=== PATIENT | female | born 1940 | race Caucasian/White ===

== ENCOUNTER 2024-10-10 14:56 | Inpatient (IN) | payer MEDICARE, BC ==
--- NOTE | 2024-10-10 17:03 | ED ---
General Adult HPI - General Chief complaint: Shortness of Breath Stated complaint: SOB Time Seen by Provider: 10/10/24 15:00 Source: patient, EMS Mode of arrival: EMS Limitations: no limitations - History of Present Illness Initial comments: Patient is an 84-year-old female with a past medical history of atrial fibrillation on Eliquis presenting today as a transfer from [facility] after she presented there for shortness of breath, was found to be hypoxic and diagnosed with bronchitis, additionally patient had elevated troponin and BNP. Cardiology was not available at [facility] so she was transferred here due to elevated troponin. Of note patient was not started on heparin, as she taken her Eliquis this morning. The patient herself does not denies any history of prior CAD/heart attacks, and currently denies chest pain. Patient states that she presented to [facility] today for shortness of breath since last night and feeling like her voice and cough o reverberated in her chest this morning, feeling like she is having chest congestion. Patient states about a week ago she began having upper respiratory symptoms and was started on amoxicillin for a sinus infection. Patient is a non-smoker and has no history of COPD or pulmonary disease. She does not wear oxygen at baseline. Patient states that while at transferring facility she received nebulizer treatments and was placed on supplemental oxygen which improved her symptoms greatly. She denies any new complaints since transfer. - Related Data Home Medications Medication Instructions Recorded Confirmed Apixaban [Eliquis] 5 mg PO BID 10/10/24 10/10/24 DULoxetine HCL [Cymbalta] 30 mg PO BID 10/10/24 10/10/24 Digoxin [Lanoxin] 62.5 mcg PO DAILY 10/10/24 10/10/24 Empagliflozin [Jardiance] 10 mg PO DAILY 10/10/24 10/10/24 Fenofibrate Nanocrystallized 145 mg PO HS 10/10/24 10/10/24 [Fenofibrate] Metoprolol Tartrate [Lopressor] 75 mg PO BID 10/10/24 10/10/24 Omeprazole [PriLOSEC] 40 mg PO DAILY 10/10/24 10/10/24 Sacubitril/Valsartan [Entresto 24 1 tab PO BID 10/10/24 10/10/24 mg-26 mg Tablet] Simvastatin [Zocor] 20 mg PO HS 10/10/24 10/10/24 Spironolactone [Aldactone] 12.5 mg PO HS 10/10/24 10/10/24 Torsemide [Demadex] 10 mg PO DAILY PRN 10/10/24 10/10/24 Allergies Allergy/AdvReac Type Severity Reaction Status Date / Time clindamycin Allergy Unknown Verified 10/10/24 16:16 oxytetracycline Allergy Swelling Verified 10/10/24 16:16 [From Terramycin] sulfamethoxazole Allergy Unknown Verified 10/10/24 16:16 [From Bactrim] trimethoprim [From Bactrim] Allergy Unknown Verified 10/10/24 16:16 Review of Systems ROS Statement: Those systems with pertinent positive or pertinent negative responses have been documented in the HPI. ROS Other: All systems not noted in ROS Statement are negative. Past Medical History Past Medical History: Atrial Fibrillation, Hypertension Additional Past Medical History / Comment(s): Enlarged heart with loop recorder, History of Any Multi-Drug Resistant Organisms: None Reported Past Surgical History: Cholecystectomy, Hernia Repair Additional Past Surgical History / Comment(s): Splinectomy, Past Psychological History: No Psychological Hx Reported Smoking Status: Former smoker Past Alcohol Use History: None Reported Past Drug Use History: None Reported General Exam - General Exam Comments Initial Comments: PE: CONSTITUTIONAL: No apparent distress, ill-appearing but nontoxic, awake and alert SKIN: Warm, dry, no jaundice, hives or petechiae EYES: Pupils are equally round, extraocular movements intact without nystagmus, clear conjunctiva, non-icteric sclera HENT: Normocephalic, atraumatic, moist mucus membranes, oropharynx clear without exudates NECK: , Full range of motion, normal appearance PULMONARY: [Wheezes and rhonchi bilaterally, no stridor or crackles, no accessory muscle use, mild tachypnea, otherwise respirations unlabored CardioVASCULAR: Irregularly irregular rate and rhythm normal S1 and S2. No appreciated murmurs, rubs or gallops. Strong radial pulses with intact distal perfusion. No lower extremity edema GASTROINTESTINAL: Soft, active bowel sounds throughout, non-tender, non-dist ended, no palpable masses, no rebound or guarding. No hepatosplenomegaly MUSCULOSKELETAL: Extremities have no gross deformity, no edema, redness, or swelling. No calf swelling NEUROLOGIC:_a/o x 3, GCS 15, normal mentation and speech. Moves all extremities x 4 without motor or sensory deficit PSYCHIATRIC:_normal mood and affect, thought process is clear and linear Limitations: no limitations Course Vital Signs 10/10/24 10/10/24 10/10/24 15:03 18:02 18:12 Temperature 98.3 F Pulse Rate 96 98 104 H Respiratory 20 Rate Blood Pressure 99/81 O2 Sat by Pulse 97 Oximetry 10/10/24 10/10/24 10/10/24 18:55 19:32 19:38 Temperature Pulse Rate 104 H 101 H 114 H Respiratory 20 20 20 Rate Blood Pressure 132/72 O2 Sat by Pulse 98 Oximetry 10/10/24 10/11/24 10/11/24 20:54 00:02 00:21 Temperature 98.7 F Pulse Rate 112 H 75 87 Respiratory 22 20 20 Rate Blood Pressure 132/82 138/86 O2 Sat by Pulse 96 98 Oximetry 10/11/24 10/11/24 10/11/24 00:27 01:22 02:00 Temperature Pulse Rate 91 112 H 86 Respiratory 20 23 21 Rate Blood Pressure 138/86 O2 Sat by Pulse 96 Oximetry 10/11/24 10/11/24 10/11/24 04:00 07:52 08:02 Temperature Pulse Rate 86 100 98 Respiratory 22 Rate Blood Pressure 152/98 O2 Sat by Pulse 97 Oximetry 10/11/24 10/11/24 10/11/24 08:36 09:50 11:08 Temperature 97.9 F Pulse Rate 99 80 74 Respiratory 18 18 18 Rate Blood Pressure 154/101 149/96 159/108 O2 Sat by Pulse 96 97 97 Oximetry 10/11/24 10/11/24 10/11/24 11:13 11:23 13:18 Temperature Pulse Rate 81 85 82 Respiratory 20 Rate Blood Pressure 150/85 O2 Sat by Pulse 96 Oximetry EKG Findings - EKG Comments: EKG Findings:: Atrial fibrillation, rate 86 bpm QRS duration 92 ms QT/QTc 378/421 ms, normal axis, no ST elevations or depressions Medical Decision Making - Medical Decision Making Was pt. sent in by a medical professional or institution (, PA, [employer], urgent care, hospital, or intermediate...) When possible be specific @ -No Did you speak to anyone other than the patient for history (EMS, parent, family, police, friend...)? What history was obtained from this source @ -No Did you review nursing and triage notes (agree or disagree)? Why? @ -I reviewed nursing and triage notes Were old charts reviewed (outside hosp., previous admission, EMS record, old EKG, old radiological studies, urgent care reports/EKG's, intermediate records)? Report findings @ -Medical records reviewed Reviewed paperwork from patient's transferring facility-patient presented to [facility] for shortness of breath that began night prior to arrival, throat and chest congestion as well and nonproductive cough, initial lactic 5.2, repeat lactic 2 troponin 270, BNP 6405, upper limit of normal at transferring facility 125, chest x-ray was performed which was read as cardiomegaly and mild central vascular prominence white blood cell count 8.83, hemoglobin 15.2, 67% neutrophils creatinine 1.09 GFR 50.59 AST 53 flu A positive; pulse ox initially 88% on room air, patient was given nebulizer treatments and placed on 2 L nasal cannula with pulse ox improving into the 90s, patient also received Tamiflu. At that the time patient was seen patient was not thought to have signs of bacterial infection so antibiotics were not given, she was transferred here due to elevated troponin and no cardiology at transferring facility. An echocardiogram report from 06/10/2024 was also provided with the patient, showed EF of 50% Differential Diagnosis (chest pain, altered mental status, abdominal pain women, abdominal pain men, vaginal bleeding, weakness, fever, dyspnea, syncope, headache, dizziness, GI bleed, back pain, seizure, CVA, palpatations, mental health, musculoskeletal)? @Differential Dyspnea: Coronary syndrome, arrhythmia, tamponade, asthma, COPD, pulmonary embolism, pneumonia, pneumothorax, pulmonary effusion, anaphylaxis, diabetic ketoacidosis, anemia, neuromuscular, this is not meant to be an all-inclusive list. Patient is anticoagulated on Eliquis and has obvious wheezing and rhonchi consistent w ith bronchitis so further workup for PE was not performed EKG interpreted by me (3pts min.). @ -As above X-rays interpreted by me (1pt min.). @ -None done CT interpreted by me (1pt min.). @ -None done U/S interpreted by me (1pt. min.). @ -None done What testing was considered but not performed or refused? (CT, X-rays, U/S, labs)? Why? @ -None What meds were considered but not given or refused? Why? @ Heparin was considered please see note below for further details Did you discuss the management of the patient with other professionals (professionals i.e. , REJI, [employer], lab, RT, psych nurse, social service liaison, ip network architect, teacher, deck officer, case management coordinator)? Give summary @ -No Was smoking cessation discussed for >3mins.? @ -No Was critical care preformed (if so, how long)? @ -No Were there social determinants of health that impacted care today? How? (Homelessness, low income, unemployed, alcoholism, drug addiction, transportation, low edu. Level, literacy, decrease access to med. care, half-way, r ehab)? @ -No Was there de-escalation of care discussed even if they declined (Discuss DNR or withdrawal of care, Hospice)? @ -No What co-morbidities impacted this encounter? (DM, HTN, Smoking, COPD, CAD, Cancer, CVA, ARF, Chemo, Hep., AIDS, mental health diagnosis, sleep apnea, morbid obesity)? @ -Atrial fibrillation on Eliquis Was patient admitted / discharged? Hospital course, mention meds given and route, prescriptions, significant lab abnormalities, going to OR and other pertinent info. @ Admission- patient is an 84-year-old female presenting as a transfer from [facility] where she had initially presented for difficulty breathing and cough. Diagnosed with influenza A, was found to be hypoxic requiring 2 L oxygen nasal cannula, had elevation in troponin, no chest pain or STEMI on EKG, was transferred here for admission, cardiology consult due to elevated troponin. On arrival here patient is on 2 L oxygen nasal cannula, breathing comfortably though does have wheezes and rhonchi bilaterally. She is awake, alert, conversant. Denies chest pain or abdominal pain. Considered antibiotics however pt has influenza and findings consistent with acute bronchitis therefor at this time will forgo antibiotics. Discussed with pt plan for repeat basic labs, breathing treatments and plan for admission, pt agreeable with POC. Patient discussed with and accepted for admission by BRITTNEY Mantilla, Patient's troponin resulted after being admitted, while remaining in the ED pending bed placement. Troponin was 0.237. The patient currently denies chest pain. Initially ordered heparin due to degree of troponin elevation however patient is pending a PT PTT so we will hold off on this at this time, heparin canceled, will continue patient's Eliquis. Undiagnosed new problem with uncertain prognosis? @ -No Drug Therapy requiring intensive monitoring for toxicity (Heparin, Nitro, Insulin, Cardizem)? @ -No Were any procedures done? @ -No Diagnosis/symptom? Acute hypoxic respiratory failure 2/2 influenza, acute bronchitis, troponin elevation Acute, or Chronic, or Acute on Chronic? acute Uncomplicated (without systemic symptoms) or Complicated (systemic symptoms)? complicated Side effects of treatment? @ -No Exacerbation, Progression, or Severe Exacerbation? @ -No Poses a threat to life or bodily function? How? (Chest pain, [place], [place], pneumonia, PE, COPD, DKA, ARF, appy, cholecystitis, CVA, Diverticulitis, Homicidal, Suicidal, threat to staff... and all critical care pts) Yes - Lab Data Result diagrams: 10/10/24 17:09 10/10/24 17:09 Lab Results 10/10/24 10/10/24 10/10/24 Range/Units 17:09 17:09 17:09 WBC 6.8 (3.8-10.6) k/uL RBC 4.01 (3.80-5.40) m/uL Hgb 13.5 (11.4-16.0) gm/dL Hct 40.7 (34.0-46.0) % MCV 101.3 H (80.0-100.0) fL MCH 33.5 (25.0-35.0) pg MCHC 33.1 (31.0-37.0) g/dL RDW 13.6 (11.5-15.5) % Plt Count 189 (150-450) k/uL MPV 8.8 Neutrophils % 82 % Lymphocytes % 11 % Monocytes % 5 % Eosinophils % 1 % Basophils % 0 % Neutrophils # 5.5 (1.3-7.7) k/uL Lymphocytes # 0.7 L (1.0-4.8) k/uL Monocytes # 0.3 (0-1.0) k/uL Eosinophils # 0.1 (0-0.7) k/uL Basophils # 0.0 (0-0.2) k/uL Macrocytosis Slight Sodium 138 (137-145) mmol/L Potassium 3.8 (3.5-5.1) mmol/L Chloride 104 (98-107) mmol/L Carbon Dioxide 25 (22-30) mmol/L Anion Gap 9 mmol/L BUN 19 H (7-17) mg/dL Creatinine 0.62 (0.52-1.04) mg/dL Est GFR (CKD-EPI)AfAm >90 (>60 ml/min/1.73 sqM) Est GFR (CKD-EPI)NonAf 84 (>60 ml/min/1.73 sqM) Glucose 133 H (74-99) mg/dL Calcium 9.3 (8.4-10.2) mg/dL Total Bilirubin 0.7 (0.2-1.3) mg/dL AST 50 H (14-36) U/L ALT 19 (4-34) U/L Alkaline Phosphatase 68 (38-126) U/L Troponin I 0.237 H* (0.000-0.034) ng/mL Total Protein 6.2 L (6.3-8.2) g/dL Albumin 3.2 L (3.5-5.0) g/dL Disposition Clinical Impression: Influenza A, Acute hypoxic respiratory failure, Acute bronchitis Disposition: ADMITTED IP TO THIS HOSP Condition: Stable
[2024-10-10 17:22] LABS: Basophils % (A) 0 %; Eosinophils # (A) 0.1 k/uL (0-0.7); Eosinophils % (A) 1 %; HCT 40.7 % (34.0-46.0); HGB 13.5 gm/dL (11.4-16.0); Lymphocytes # (A) 0.7 k/uL (1.0-4.8); Lymphocytes % (A) 11 %; MCH 33.5 pg (25.0-35.0); MCHC 33.1 g/dL (31.0-37.0); MCV 101.3 fL (80.0-100.0); Macrocytosis Slight; Mean Platelet Volume 8.8; Monocytes # (A) 0.3 k/uL (0-1.0); Monocytes % (A) 5 %; Neutrophils # (A) 5.5 k/uL (1.3-7.7); Neutrophils % (A) 82 %; Platelet Count 189 k/uL (150-450); RBC 4.01 m/uL (3.80-5.40); RDW 13.6 % (11.5-15.5); WBC 6.8 k/uL (3.8-10.6)
[2024-10-10 17:38] LABS: ALT 19 U/L (4-34); AST 50 U/L (14-36); African American GFR (CKD) >90 (>60 ml/min/1.73 sqM); Albumin 3.2 g/dL (3.5-5.0); Alkaline Phosphatase 68 U/L (38-126); Anion Gap 9 mmol/L; Blood Urea Nitrogen 19 mg/dL (7-17); Calcium 9.3 mg/dL (8.4-10.2); Carbon Dioxide 25 mmol/L (22-30); Chloride 104 mmol/L (98-107); Glucose 133 mg/dL (74-99); Non-African American GFR(CKD) 84 (>60 ml/min/1.73 sqM); Potassium 3.8 mmol/L (3.5-5.1); Sodium 138 mmol/L (137-145); Total Bilirubin 0.7 mg/dL (0.2-1.3); Total Protein 6.2 g/dL (6.3-8.2)
[2024-10-10] MEDS: IPRATROPIUM-ALBUTEROL 3 ML NEB INHALATION STA (18:02)
[2024-10-10] MEDS: methylPREDNISolone SOD SUCCI 125 MG/2 ML VIAL IV STA (18:49)
[2024-10-10] MEDS ORDERED: NALOXONE 0.4 MG/ML 1 ML VIAL IV PRN (19:03)
[2024-10-10] MEDS ORDERED: ACETAMINOPHEN TAB 325 MG TAB PO PRN (19:03)
[2024-10-10] MEDS ORDERED: TORSEMIDE 20 MG TAB PO PRN (19:08)
[2024-10-10] MEDS ORDERED: BENZONATATE 100 MG CAP PO PRN (19:08)
[2024-10-10] MEDS: IPRATROPIUM-ALBUTEROL 3 ML NEB INHALATION SCH (19:30)
[2024-10-10] MEDS ORDERED: HEPARIN SODIUM 1,000 UN/ML (10ML VL) IV PRN (20:28)
[2024-10-10] MEDS ORDERED: APIXABAN 5 MG TAB PO SCH (21:00)
[2024-10-10] MEDS: APIXABAN 5 MG TAB PO SCH (21:02)
[2024-10-10] MEDS: METOPROLOL TARTRATE 25 MG TAB PO SCH (21:03)
[2024-10-10] MEDS: ATORVASTATIN 10 MG TAB PO SCH (21:03)
[2024-10-10] MEDS: FENOFIBRATE 160 MG TAB PO SCH (21:03)
[2024-10-10] MEDS: DULoxetine HCL 30 MG CAPSULE.DR PO SCH (21:03)
[2024-10-10] MEDS: OSELTAMIVIR 75 MG CAP PO SCH (21:03)
[2024-10-10] MEDS: SACUBITRIL/VALSARTAN 24 MG-26 MG TABLET PO SCH (21:04)
[2024-10-10] MEDS: SPIRONOLACTONE 25 MG TAB PO SCH (21:04)
[2024-10-10] MEDS: HEPARIN SODIUM 1,000 UN/ML (10ML VL) IV ONE (21:11)
[2024-10-10] MEDS: HEPARIN SOD,PORK IN 0.45% NACL 25,000 UNIT in 0.45% NACL 1 250ML.BAG IV SCH (21:11)
[2024-10-10 21:30] LABS: INR 1.2 (<1.2); Partial Thromboplastin Time 25.1 sec (22.0-30.0); Prothrombin Time 12.7 sec (10.0-12.5)
[2024-10-11] MEDS: IPRATROPIUM-ALBUTEROL 3 ML NEB INHALATION PRN (00:21)
[2024-10-11] MEDS: METOPROLOL SUCCINATE (ER) 25 MG TAB.ER.24H PO STA (01:39)
--- NOTE | 2024-10-11 08:16 | XR ---
EXAMINATION TYPE: XR chest 1V portable DATE OF EXAM: 10/11/2024 8:07 AM COMPARISON: None CLINICAL INDICATION: Female, 84 years old with history of cough sob; [facility] TECHNIQUE: XR chest 1V portable Frontal view of the chest. FINDINGS: Lungs/Pleura: There is no evidence of pleural effusion, focal consolidation, or pneumothorax. Pulmonary vascularity: Pulmonary vascular congestion. Heart/mediastinum: Cardiomediastinal silhouette is enlarged. Musculoskeletal: Degenerative changes of the shoulder joints. Other findings: None Lines/Tubes: IMPRESSION: Cardiomegaly and mild pulmonary vascular congestion. Correlate with BNP for congestive heart failure. [facility], , 10/11/2024 8:13 AM
[2024-10-11] MEDS: predniSONE 20 MG TAB PO SCH (08:39)
[2024-10-11] MEDS: PANTOPRAZOLE 40 MG TABLET PO SCH (08:40)
[2024-10-11] MEDS: DIGOXIN 62.5 MCG TAB PO SCH (08:40)
[2024-10-11] MEDS: TORSEMIDE 20 MG TAB PO SCH (09:40)
--- NOTE | 2024-10-11 10:56 | P.HPIM ---
History of Present Illness This is a pleasant 84 years old female with past medical history of multiple medical problems including A-fib and RVR and she is on Eliquis at home, she follow-up with button [facility] buckle [facility] as an outpatient Dr. Soares She has been having worsening shortness of breath for more than a week, she went to urgent care who prescribed her antibiotics ampicillin with no much benefit yesterday she went to antibiotics urgent care where they started her on influenza diagnosis with treatment with Tamiflu. Also she was started on prednisone. Patient she has remote history of smoking more than 40 years ago. She is having some coughing with phlegm. She denies chest pain. No specific GI/ symptoms. No headache dizziness weakness numbness No smoking alcohol or illicit drugs She is afebrile and hemodynamically stable, currently she is saturating 97% on 3 L oxygen via nasal cannula Troponin is elevated 0.23, 0.19, 0.16 and 0.10 EKG showing sinus r tachycardia at [address]-T changes chest x- ray reviewed by me showing cardiomegaly with pulmonary vascular congestion proBNP is pending echocardiogram is requested and is pending Review of Systems Review of systems CONSTITUTIONAL: No fever, no malaise, no fatigue. HEENT: No recent visual problems or hearing problems. Denied any sore throat. CARDIOVASCULAR: No orthopnea, PND, no palpitations, no syncope. PULMONARY: No chest pelvic tenderness, no hemoptysis. GASTROINTESTINAL: No diarrhea, no nausea, no vomiting, no abdominal pain. Normoa ctive bowel sounds. NEUROLOGICAL: No headaches, no weakness, no numbness. HEMATOLOGICAL: Denies any bleeding or petechiae. GENITOURINARY: Denies any burning micturition, frequency, or urgency. MUSCULOSKELETAL/RHEUMATOLOGICAL: Denies any joint pain, swelling, or any muscle pain. ENDOCRINE: Denies any polyuria or polydipsia. Past Medical History Past Medical History: Atrial Fibrillation, Hypertension Additional Past Medical History / Comment(s): Enlarged heart with loop recorder, Hard of hearing History of Any Multi-Drug Resistant Organisms: None Reported Past Surgical History: Cholecystectomy, Hernia Repair Additional Past Surgical History / Comment(s): Splinectomy, Past Anesthesia/Blood Transfusion Reactions: No Reported Reaction Past Psychological History: No Psychological Hx Reported Smoking Status: Former smoker Past Alcohol Use History: None Reported Past Drug Use History: None Reported Medications and Allergies Home Medications Medication Instructions Recorded Confirmed Type Apixaban [Eliquis] 5 mg PO BID 10/10/24 10/10/24 History DULoxetine HCL [Cymbalta] 30 mg PO BID 10/10/24 10/10/24 History Digoxin [Lanoxin] 62.5 mcg PO DAILY 10/10/24 10/10/24 History Empagliflozin [Jardiance] 10 mg PO DAILY 10/10/24 10/10/24 History Fenofibrate Nanocrystallized 145 mg PO HS 10/10/24 10/10/24 History [Fenofibrate] Metoprolol Tartrate [Lopressor] 75 mg PO BID 10/10/24 10/10/24 History Omeprazole [PriLOSEC] 40 mg PO DAILY 10/10/24 10/10/24 History Sacubitril/Valsartan [Entresto 24 1 tab PO BID 10/10/24 10/10/24 History mg-26 mg Tablet] Simvastatin [Zocor] 20 mg PO HS 10/10/24 10/10/24 History Spironolactone [Aldactone] 12.5 mg PO HS 10/10/24 10/10/24 History Torsemide [Demadex] 10 mg PO DAILY PRN 10/10/24 10/10/24 History Allergies Allergy/AdvReac Type Severity Reaction Status Date / Time clindamycin Allergy Unknown Verified 10/10/24 16:16 oxytetracycline Allergy Swelling Verified 10/10/24 16:16 [From Terramycin] sulfamethoxazole Allergy Unknown Verified 10/10/24 16:16 [From Bactrim] trimethoprim [From Bactrim] Allergy Unknown Verified 10/10/24 16:16 Physical Exam Vitals: Vital Signs Temp Pulse Resp BP Pulse Ox 10/11/24 09:50 80 18 149/96 97 10/11/24 08:36 97.9 F 99 18 154/101 96 10/11/24 08:02 98 10/11/24 07:52 100 10/11/24 04:00 86 22 152/98 97 10/11/24 02:00 86 21 138/86 96 10/11/24 01:22 112 H 23 10/11/24 00:27 91 20 10/11/24 00:21 87 20 10/11/24 00:02 75 20 138/86 98 10/10/24 20:54 98.7 F 112 H 22 132/82 96 10/10/24 19:38 114 H 20 10/10/24 19:32 101 H 20 10/10/24 18:55 104 H 20 132/72 98 10/10/24 18:12 104 H 10/10/24 18:02 98 10/10/24 15:03 98.3 F 96 20 99/81 97 Intake and Output 10/10/24 10/11/24 10/11/24 22:59 06:59 14:59 Other: Weight 115.212 kg 115.212 kg -GENERAL: The patient is alert and oriented x3, not in any acute distress. Well developed, well nourished. Obese HEENT: Pupils are round and equally reacting to light. EOMI. No scleral icterus. No conjunctival pallor. Normocephalic, atraumatic. No pharyngeal erythema. No thyromegaly. CARDIOVASCULAR: S1 and S2 present. No murmurs, rubs, or gallops. -PULMONARY: Chest is clear to auscultation, mild expiratory wheezing, mild basal crepitation . ABDOMEN: Soft, nontender, nondistended, normoactive bowel sounds. No palpable organomegaly. MUSCULOSKELETAL: No joint swelling or deformity. EXTREMITIES: No cyanosis, clubbing, or pedal edema. NEUROLOGICAL: Gross neurological examination did not reveal any focal deficits. SKIN: No rashes. no petechiae. Results CBC & Chem 7: 10/10/24 17:09 10/10/24 17:09 Labs: Abnormal Lab Results - Last 24 Hours (Table) 10/10/24 10/10/24 10/10/24 Range/Units 17:09 17:09 17:09 MCV 101.3 H (80.0-100.0) fL Lymphocytes # 0.7 L (1.0-4.8) k/uL PT (10.0-12.5) sec INR (<1.2) BUN 19 H (7-17) mg/dL Glucose 133 H (74-99) mg/dL AST 50 H (14-36) U/L Troponin I 0.237 H* (0.000-0.034) ng/mL Total Protein 6.2 L (6.3-8.2) g/dL Albumin 3.2 L (3.5-5.0) g/dL 10/10/24 10/10/24 10/10/24 Range/Units 20:17 21:01 23:33 MCV (80.0-100.0) fL Lymphocytes # (1.0-4.8) k/uL PT 12.7 H (10.0-12.5) sec INR 1.2 H (<1.2) BUN (7-17) mg/dL Glucose (74-99) mg/dL AST (14-36) U/L Troponin I 0.196 H* 0.164 H* (0.000-0.034) ng/mL Total Protein (6.3-8.2) g/dL Albumin (3.5-5.0) g/dL 10/11/24 Range/Units 05:04 MCV (80.0-100.0) fL Lymphocytes # (1.0-4.8) k/uL PT (10.0-12.5) sec INR (<1.2) BUN (7-17) mg/dL Glucose (74-99) mg/dL AST (14-36) U/L Troponin I 0.106 H* (0.000-0.034) ng/mL Total Protein (6.3-8.2) g/dL Albumin (3.5-5.0) g/dL Thrombosis Risk Factor Assmnt - Choose All That Apply Each Factor Represents 1 point: Obesity (BMI >25), Serious lung disease incl. pneumonia (< 1month) Each Risk Factor Represents 3 Points: Age 75 years or older Thrombosis Risk Factor Assessment Total Risk Factor Score: 5 Thrombosis Risk Factor Assessment Level: High Risk Assessment and Plan Assessment: Acute CHF exacerbation, unknown ejection fraction A-fib and RVR, present on admission Influenza A infection Possible acute COPD exacerbation Obesity with BMI of 41 Hypertension Plan: Start IV Lasix 40 mg twice daily Continue with Tamiflu Continue with Eliquis Continue with prednisone 40 mg Cardiology team consult Pulmonary team consult Labs and medication were reviewed.. Continue same treatment. Continue with symptomatic treatment. Resume home medication. Monitor labs and vitals. DVT and GI prophylaxis. Further recommendations as per clinical course of the patient DVT prophylaxis: S Eliquis GI Prophylaxis: Protonix PT/OT: Pending Prognosis is guarded
[2024-10-11] MEDS: FUROSEMIDE 10 MG/ML 4 ML VIAL IV SCH (11:11)
--- NOTE | 2024-10-11 12:21 | P.CRDCN ---
History of Present Illness Consult date: 10/11/24 History of present illness: HISTORY OF PRESENTING ILLNESS: Patient is a 84-year-old female sees a monotype setter in [place]. She has a prior history of dilated cardiomyopathy, chronic atrial fibrillation chronic hypoxia, morbid obesity., This time she presented to the hospital because of increased worsening shortness of breath along with generalized fatigue. On admission she was noticed to be positive for influenza A. She also had atrial fibrillation with RVR and appeared volume overloaded with congestive heart failure exacerbation. She also has mild wheezing on exam on admission. Admission Labs: Troponin elevated at 0.16 with a flat pattern, NT-proBNP 3100, BUN 19, creatinine 0.6 Admission EKG: A-fib heart rate 102 bpm, nonspecific ST changes Chest x-ray shows cardiomegaly with mild increased interstitial markings REVIEW OF SYSTEMS: 14 point review of system is negative except what is mentioned above in HPI. PHYSICAL EXAMINATION: Neck: Brisk carotid upstroke, no jugular venous distention. Lungs: Wheezing crackles and rhonchi audible mild lung willis Heart: Irregularly irregular pulse, no significant systolic murmur audible Abdomen: Soft nontender, positive bowel sounds. Extremities: 1-2+ pitting edema bilateral lower extremity. Neuro: Alert, oritented, no focal deficits. Detailed neuro exam was not performed. ASSESSMENT: # Elevated troponin with flat pattern because of hypoxemia and mild CHF exacerbation. Demand supply mismatch. # Acute on chronic hypoxic respiratory failure # Influenza A pneumonia # Acute CHF exacerbation with reduced ejection fraction # Dilated cardiomyopathy # Morbid obesity # Dyslipidemia, hypertension PLAN: Continue Eliquis 5 mg twice daily, Lipitor 10, He is on digoxin 62.5 mcg daily, Entresto 24/26 mg twice daily, Aldactone 12.5 mg daily. Will continue. Consider adding SGLT2 prior to discharge. Increase metoprolol to 100 mg twice daily If blood pressure allows consider increasing Entresto. At this time she is on IV Lasix 40 mg twice daily. Obtain updated echocardiogram Recommend using BiPAP Further recommendations to follow Larry Ortiz MD, FACC, RPVI Thank you for allowing [facility] to participate in this patient's care. Feel free to reach out in case of any followup questions. Past Medical History Past Medical History: Atrial Fibrillation, Hypertension Additional Past Medical History / Comment(s): Enlarged heart with loop recorder, Hard of hearing History of Any Multi-Drug Resistant Organisms: None Reported Past Surgical History: Cholecystectomy, Hernia Repair Additional Past Surgical History / Comment(s): Splinectomy, Past Anesthesia/Blood Transfusion Reactions: No Reported Reaction Past Psychological History: No Psychological Hx Reported Smoking Status: Former smoker Past Alcohol Use History: None Reported Past Drug Use History: None Reported Medications and Allergies Home Medications Medication Instructions Recorded Confirmed Type Apixaban [Eliquis] 5 mg PO BID 10/10/24 10/10/24 History DULoxetine HCL [Cymbalta] 30 mg PO BID 10/10/24 10/10/24 History Digoxin [Lanoxin] 62.5 mcg PO DAILY 10/10/24 10/10/24 History Empagliflozin [Jardiance] 10 mg PO DAILY 10/10/24 10/10/24 History Fenofibrate Nanocrystallized 145 mg PO HS 10/10/24 10/10/24 History [Fenofibrate] Metoprolol Tartrate [Lopressor] 75 mg PO BID 10/10/24 10/10/24 History Omeprazole [PriLOSEC] 40 mg PO DAILY 10/10/24 10/10/24 History Sacubitril/Valsartan [Entresto 24 1 tab PO BID 10/10/24 10/10/24 History mg-26 mg Tablet] Simvastatin [Zocor] 20 mg PO HS 10/10/24 10/10/24 History Spironolactone [Aldactone] 12.5 mg PO HS 10/10/24 10/10/24 History Torsemide [Demadex] 10 mg PO DAILY PRN 10/10/24 10/10/24 History Allergies Allergy/AdvReac Type Severity Reaction Status Date / Time clindamycin Allergy Unknown Verified 10/10/24 16:16 oxytetracycline Allergy Swelling Verified 10/10/24 16:16 [From Terramycin] sulfamethoxazole Allergy Unknown Verified 10/10/24 16:16 [From Bactrim] trimethoprim [From Bactrim] Allergy Unknown Verified 10/10/24 16:16 Physical Exam Vitals: Vital Signs Temp Pulse Resp BP Pulse Ox 10/11/24 11:23 85 10/11/24 11:13 81 10/11/24 11:08 74 18 159/108 97 10/11/24 09:50 80 18 149/96 97 10/11/24 08:36 97.9 F 99 18 154/101 96 10/11/24 08:02 98 10/11/24 07:52 100 10/11/24 04:00 86 22 152/98 97 10/11/24 02:00 86 21 138/86 96 10/11/24 01:22 112 H 23 10/11/24 00:27 91 20 10/11/24 00:21 87 20 10/11/24 00:02 75 20 138/86 98 10/10/24 20:54 98.7 F 112 H 22 132/82 96 10/10/24 19:38 114 H 20 10/10/24 19:32 101 H 20 10/10/24 18:55 104 H 20 132/72 98 10/10/24 18:12 104 H 10/10/24 18:02 98 10/10/24 15:03 98.3 F 96 20 99/81 97 Intake and Output 10/10/24 10/11/24 10/11/24 22:59 06:59 14:59 Other: Weight 115.212 kg 115.212 kg Results 10/10/24 17:09 10/10/24 17:09 Cardiac Enzymes 10/10/24 10/10/24 10/10/24 Range/Units 17:09 17:09 20:17 AST 50 H (14-36) U/L Troponin I 0.237 H* 0.196 H* (0.000-0.034) ng/mL 10/10/24 10/11/24 Range/Units 23:33 05:04 AST (14-36) U/L Troponin I 0.164 H* 0.106 H* (0.000-0.034) ng/mL Coagulation 10/10/24 Range/Units 21:01 PT 12.7 H (10.0-12.5) sec APTT 25.1 (22.0-30.0) sec CBC 10/10/24 Range/Units 17:09 WBC 6.8 (3.8-10.6) k/uL RBC 4.01 (3.80-5.40) m/uL Hgb 13.5 (11.4-16.0) gm/dL Hct 40.7 (34.0-46.0) % Plt Count 189 (150-450) k/uL Comprehensive Metabolic Panel 10/10/24 Range/Units 17:09 Sodium 138 (137-145) mmol/L Potassium 3.8 (3.5-5.1) mmol/L Chloride 104 (98-107) mmol/L Carbon Dioxide 25 (22-30) mmol/L BUN 19 H (7-17) mg/dL Creatinine 0.62 (0.52-1.04) mg/dL Glucose 133 H (74-99) mg/dL Calcium 9.3 (8.4-10.2) mg/dL AST 50 H (14-36) U/L ALT 19 (4-34) U/L Alkaline Phosphatase 68 (38-126) U/L Total Protein 6.2 L (6.3-8.2) g/dL Albumin 3.2 L (3.5-5.0) g/dL Current Medications Generic Name Dose Route Start Last Admin Trade Name Freq PRN Reason Stop Dose Admin Acetaminophen 650 mg 10/10/24 19:03 Acetaminophen Tab 325 Mg Tab PO Q6HR PRN Mild Pain or Fever > 100.5 Albuterol/Ipratropium 3 ml 10/10/24 19:08 10/11/24 00:21 Ipratropium-Albuterol 3 Ml Neb INHALATION 3 ml RT-Q2H PRN Administration Shortness Of Breath Or Wheezing Albuterol/Ipratropium 3 ml 10/10/24 20:00 10/11/24 11:13 Ipratropium-Albuterol 3 Ml Neb INHALATION 3 ml RT-QID MORENA Administration Apixaban 5 mg 10/10/24 21:00 10/11/24 08:41 Apixaban 5 Mg Tab PO 5 mg BID MORENA Administration Protocol Atorvastatin Calcium 10 mg 10/10/24 21:00 10/10/24 21:03 Atorvastatin 10 Mg Tab PO 10 mg HS MORENA Administration Benzonatate 100 mg 10/10/24 19:08 Benzonatate 100 Mg Cap PO TID PRN Cough Digoxin 62.5 mcg 10/11/24 09:00 10/11/24 08:40 Digoxin 62.5 Mcg Tab PO 62.5 mcg DAILY MORENA Administration Duloxetine HCl 30 mg 10/10/24 21:00 10/11/24 08:39 Duloxetine Hcl 30 Mg Capsule.Dr PO 30 mg BID MORENA Administration Fenofibrate 160 mg 10/10/24 21:00 10/10/24 21:03 Fenofibrate 160 Mg Tab PO 160 mg HS MORENA Administration Furosemide 40 mg 10/11/24 11:15 10/11/24 11:11 Furosemide 10 Mg/Ml 4 Ml Vial IV 40 mg Q12HR MORENA Administration Metoprolol Tartrate 100 mg 10/11/24 21:00 Metoprolol Tartrate 25 Mg Tab PO BID MORENA Naloxone HCl 0.2 mg 10/10/24 19:03 Naloxone 0.4 Mg/Ml 1 Ml Vial IV Q2M PRN Opioid Reversal Oseltamivir Phosphate 75 mg 10/10/24 21:00 10/11/24 08:39 Oseltamivir 75 Mg Cap PO 10/15/24 09:01 75 mg Q12HR MORENA Administration Protocol Pantoprazole Sodium 40 mg 10/11/24 07:30 10/11/24 08:40 Pantoprazole 40 Mg Tablet PO 40 mg [id number] MORENA Administration Prednisone 40 mg 10/11/24 09:00 10/11/24 08:39 Prednisone 20 Mg Tab PO 10/15/24 09:01 40 mg DAILY MORENA Administration Sacubitril/Valsartan 1 each 10/10/24 21:00 10/11/24 08:46 Sacubitril/Valsartan 24 Mg-26 Mg Tablet PO Not Given BID MORENA Spironolactone 12.5 mg 10/10/24 21:00 10/10/24 21:04 Spironolactone 25 Mg Tab PO 12.5 mg HS MORENA Administration Intake and Output 10/10/24 10/11/24 10/11/24 22:59 06:59 14:59 Other: Weight 115.212 kg 115.212 kg Patient Weight 10/12/24 06:59 Weight 115.212 kg 10/10/24 17:09 10/10/24 17:09
--- NOTE | 2024-10-11 13:11 | P.CNPUL ---
History of Present Illness Consult date: 10/11/24 Requesting physician: Jose Ordaz Reason for consult: dyspnea, hypoxemia, abnormal CXR/CT Chief complaint: Shortness of breath History of present illness: This is a pleasant 84-year-old female patient who has a history of atrial fibrillation anticoagulated with Eliquis, hypertension, severe cardiomyopathy recently wearing a life vest, former smoker, splenectomy. She had presented to [facility] with complaints of increasing shortness of breath cough and congestion. She was feeling weak and fatigued. She apparently tested positive for influenza A. She was found to be in atrial fibrillation with a rapid ventricular response. She was found to have elevated troponins and was person sferred here for yesterday for further treatment and care. Chest x-ray reveals cardiomegaly and mild pulmonary vascular congestion. EKG revealed atrial fibrillation with a controlled ventricular response. White count 6.8. Hemoglobin 13.5. Platelets 189. Sodium 138. Potassium 3.8. Bicarb 25. BUN 19. Creatinine 0.62. Glucose 133. Troponin 0.164, 0.106. proBNP 3100. She is seen today in consultation in the emergency department. She is currently sitting up on a stretcher. Awake and alert in no acute distress. She is maintaining O2 saturations in the 90s on 3 L/min per nasal cannula. She has a dry nonproductive cough. She has some hoarseness. Hemoptysis. She has been afebrile. Somewhat hypertensive. Review of Systems REVIEW OF SYSTEMS: CONSTITUTIONAL: Denies any recent significant weight loss or weight gain. EYES: Denies change in vision. EARS, NOSE, MOUTH, THROAT: Denies headaches, denies sore throat. CARDIOVASCULAR: Denies chest pain, palpitations or syncopal episodes. RESPIRATORY: Positive for shortness of breath, cough, congestion no hemoptysis. GASTROINTESTINAL: Denies change in appetite, denies abdominal pain GENITOURINARY: Denies hematuria, denies infections. MUSKULOSKELETAL: Denies pain, denies swelling. INTEGUMENTARY: Denies rash, denies eczema. NEUROLOGICAL: Denies recent memory loss, no recent seizure activity. PSYCHIATRIC: Denies anxiety, denies depression. HEMATOLOGIC/LYMPHATIC: Denies anemia, denies enlarged lymph nodes. Past Medical History Past Medical History: Atrial Fibrillation, Hypertension Additional Past Medical History / Comment(s): Enlarged heart with loop recorder, Hard of hearing History of Any Multi-Drug Resistant Organisms: None Reported Past Surgical History: Cholecystectomy, Hernia Repair Additional Past Surgical History / Comment(s): Splinectomy, Past Anesthesia/Blood Transfusion Reactions: No Reported Reaction Past Psychological History: No Psychological Hx Reported Smoking Status: Former smoker Past Alcohol Use History: None Reported Past Drug Use History: None Reported Medications and Allergies Home Medications Medication Instructions Recorded Confirmed Type Apixaban [Eliquis] 5 mg PO BID 10/10/24 10/10/24 History DULoxetine HCL [Cymbalta] 30 mg PO BID 10/10/24 10/10/24 History Digoxin [Lanoxin] 62.5 mcg PO DAILY 10/10/24 10/10/24 History Empagliflozin [Jardiance] 10 mg PO DAILY 10/10/24 10/10/24 History Fenofibrate Nanocrystallized 145 mg PO HS 10/10/24 10/10/24 History [Fenofibrate] Metoprolol Tartrate [Lopressor] 75 mg PO BID 10/10/24 10/10/24 History Omeprazole [PriLOSEC] 40 mg PO DAILY 10/10/24 10/10/24 History Sacubitril/Valsartan [Entresto 24 1 tab PO BID 10/10/24 10/10/24 History mg-26 mg Tablet] Simvastatin [Zocor] 20 mg PO HS 10/10/24 10/10/24 History Spironolactone [Aldactone] 12.5 mg PO HS 10/10/24 10/10/24 History Torsemide [Demadex] 10 mg PO DAILY PRN 10/10/24 10/10/24 History Allergies Allergy/AdvReac Type Severity Reaction Status Date / Time clindamycin Allergy Unknown Verified 10/10/24 16:16 oxytetracycline Allergy Swelling Verified 10/10/24 16:16 [From Terramycin] sulfamethoxazole Allergy Unknown Verified 10/10/24 16:16 [From Bactrim] trimethoprim [From Bactrim] Allergy Unknown Verified 10/10/24 16:16 Physical Exam Vitals: Vital Signs Temp Pulse Resp BP Pulse Ox 10/11/24 11:23 85 10/11/24 11:13 81 10/11/24 11:08 74 18 159/108 97 10/11/24 09:50 80 18 149/96 97 10/11/24 08:36 97.9 F 99 18 154/101 96 10/11/24 08:02 98 10/11/24 07:52 100 10/11/24 04:00 86 22 152/98 97 10/11/24 02:00 86 21 138/86 96 10/11/24 01:22 112 H 23 10/11/24 00:27 91 20 10/11/24 00:21 87 20 10/11/24 00:02 75 20 138/86 98 10/10/24 20:54 98.7 F 112 H 22 132/82 96 10/10/24 19:38 114 H 20 10/10/24 19:32 101 H 20 10/10/24 18:55 104 H 20 132/72 98 10/10/24 18:12 104 H 10/10/24 18:02 98 10/10/24 15:03 98.3 F 96 20 99/81 97 Intake and Output 10/10/24 10/11/24 10/11/24 22:59 06:59 14:59 Other: Weight 115.212 kg 115.212 kg GENERAL EXAM: Alert,, pleasant 84-year-old female, on 3 L nasal cannula, fairly comfortable in no apparent distress. HEAD: Normocephalic. EYES: Normal reaction of pupils, equal size. NOSE: Clear with pink turbinates. THROAT: No erythema or exudates. NECK: No masses, no JVD. CHEST: No chest wall deformity. LUNGS: Equal air entry with crackles in the bilateral bases . CVS: S1 and S2 normal with an audible murmur, irregular rhythm. ABDOMEN: No hepatosplenomegaly, normal bowel sounds, no guarding or rigidity. SPINE: No scoliosis or deformity SKIN: No rashes CENTRAL NERVOUS SYSTEM: No focal deficits, tone is normal in all 4 extremities. EXTREMITIES: There is 1+ peripheral edema. No clubbing, no cyanosis. Peripheral pulses are intact. Results - Laboratory Findings CBC and BMP: 10/10/24 17:09 10/10/24 17:09 PT/INR, D-dimer PT 12.7 sec (10.0-12.5) H 10/10/24 21:01 INR 1.2 (<1.2) H 10/10/24 21:01 Abnormal lab findings: Abnormal Labs 10/10/24 10/10/24 10/10/24 17:09 17:09 17:09 MCV 101.3 H Lymphocytes # 0.7 L PT INR BUN 19 H Glucose 133 H AST 50 H Troponin I 0.237 H* Total Protein 6.2 L Albumin 3.2 L 10/10/24 10/10/24 10/10/24 20:17 21:01 23:33 MCV Lymphocytes # PT 12.7 H INR 1.2 H BUN Glucose AST Troponin I 0.196 H* 0.164 H* Total Protein Albumin 10/11/24 05:04 MCV Lymphocytes # PT INR BUN Glucose AST Troponin I 0.106 H* Total Protein Albumin - Diagnostic Findings Chest x-ray: image reviewed Assessment and Plan Assessment: Acute hypoxemic respiratory failure secondary to an acute exacerbation of suspected systolic congestive heart failure with atrial fibrillation and rapid ventricular response Troponin leak suspect secondary to above Acute influenza A infection, currently on Tamiflu History of atrial fibrillation, anticoagulated with Eliquis History of severe cardiomyopathy recently wearing a LifeVest, has a loop recorder Hypertension Former smoker 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 Number of minutes spent on the visit: 20 Dictation was produced using [employer] dictation software. Please excuse any grammatical, word or spelling errors.
[2024-10-11] MEDS: METOPROLOL TARTRATE 50 MG TAB PO SCH (21:21)
[2024-10-12 05:52] LABS: Basophils % (A) 0 %; Eosinophils % (A) 1 %; HCT 44.1 % (34.0-46.0); HGB 13.8 gm/dL (11.4-16.0); Lymphocytes # (A) 1.2 k/uL (1.0-4.8); Lymphocytes % (A) 19 %; MCH 31.7 pg (25.0-35.0); MCHC 31.3 g/dL (31.0-37.0); MCV 101.4 fL (80.0-100.0); Macrocytosis Slight; Mean Platelet Volume 8.8; Monocytes # (A) 0.6 k/uL (0-1.0); Monocytes % (A) 10 %; Neutrophils # (A) 4.3 k/uL (1.3-7.7); Neutrophils % (A) 68 %; Platelet Count 224 k/uL (150-450); RBC 4.35 m/uL (3.80-5.40); RDW 13.4 % (11.5-15.5); WBC 6.3 k/uL (3.8-10.6)
[2024-10-12 06:42] LABS: African American GFR (CKD) 75 (>60 ml/min/1.73 sqM); Anion Gap 4 mmol/L; Blood Urea Nitrogen 25 mg/dL (7-17); Calcium 9.2 mg/dL (8.4-10.2); Carbon Dioxide 35 mmol/L (22-30); Chloride 99 mmol/L (98-107); Glucose 99 mg/dL (74-99); Non-African American GFR(CKD) 65 (>60 ml/min/1.73 sqM); Potassium 3.5 mmol/L (3.5-5.1); Sodium 138 mmol/L (137-145)
[2024-10-12] MEDS ORDERED: HYDROmorphone 0.5 MG/0.5 ML SYRINGE IVP PRN (11:07)
[2024-10-12] MEDS: DAPAGLIFLOZIN PROPANEDIOL 10 MG TABLET PO SCH (11:47)
[2024-10-12 11:50] VITALS: BP 119/76; TEMP 97.5
[2024-10-12 13:11] VITALS: RESP 18
[2024-10-12 13:20] VITALS: PULSE 88
--- NOTE | 2024-10-12 14:08 | P.PN ---
Subjective HISTORY OF PRESENT ILLNESS: Patient is a 84-year-old female sees a sprigger in [place]. She has a prior history of dilated cardiomyopathy, chronic atrial fibrillation chronic hypoxia, morbid obesity., This time she presented to the hospital because of increased worsening shortness of breath along with generalized fatigue. On admission she was noticed to be positive for influenza A. She also had atrial fibrillation with RVR and appeared volume overloaded with congestive heart failure exacerbation. She also has mild wheezing on exam on admission. Admission Labs: Troponin elevated at 0.16 with a flat pattern, NT-proBNP 3100, BUN 19, creatinine 0.6 Admission EKG: A-fib heart rate 102 bpm, nonspecific ST changes Chest x-ray shows cardiomegaly with mild increased interstitial markings 10/12/2024 Patient examined this morning at the bedside. Patient currently denies chest pain or pressure. She denies shortness of breath. Telemetry reveals atrial fibrillation with controlled ventricular rate. PHYSICAL EXAM: VITAL SIGNS: Reviewed. GENERAL: Well-developed in no acute distress. NECK: Supple. No JVD or thyromegaly LUNGS: Respirations even and unlabored. Lungs essentially clear to auscultation bilaterally. HEART: irregular rate and rhythm. S1 and S2 heard. EXTREMITIES: Normal range of motion. No clubbing or cyanosis. Peripheral pulses intact. No lower extremity edema ASSESSMENT: # Elevated troponins, type II ME secondary to oxygen supply/demand mismatch # Acute on chronic hypoxic respiratory failure # Influenza A pneumonia # Acute on chronic CHF exacerbation with reduced ejection fraction # Dilated cardiomyopathy # Morbid obesity # Dyslipidemia, hypertension History of loop recorder insertion History of paroxysmal atrial fibrillation/flutter PLAN: Discontinue IV Lasix. Begin oral Lasix 40 mg daily Continue additional cardiac medications 2D echo ordered. Await results. Patient is currently stable from a cardiac perspective pending echo results Patient to follow-up postdischarge with her primary sprigger in [place] Nurse practitioner note has been reviewed by physician. Signing provider agrees with the documented findings, assessment, and plan of care documented by POWER SYSTEM ENGINEER as a scribe. Objective - Vital Signs Vital signs: Vital Signs Temp 97.5 F L 10/12/24 11:45 Pulse 88 10/12/24 13:20 Resp 18 10/12/24 13:20 BP 119/76 10/12/24 11:45 Pulse Ox 94 L 10/12/24 13:08 FiO2 Intake & Output 10/11/24 10/12/24 10/12/24 18:59 06:59 18:59 Intake Total 237 440 Balance 237 440 Weight 115.212 kg 112.5 kg Intake: Oral 237 440 Other: Voiding Method External Catheter Bedside Commode Bedside Commode # Voids 1 1 1 - Labs CBC & Chem 7: 10/12/24 05:22 10/12/24 05:22 Labs: Abnormal Lab Results - Last 24 Hours (Table) 10/12/24 10/12/24 Range/Units 05:22 05:22 MCV 101.4 H (80.0-100.0) fL Carbon Dioxide 35 H (22-30) mmol/L BUN 25 H (7-17) mg/dL
--- NOTE | 2024-10-12 14:50 | P.PN ---
Subjective Progress Note Date: 10/12/24 Principal diagnosis: Bronchitis. This is a pleasant 84-year-old female patient who has a history of atrial fibrillation anticoagulated with Eliquis, hypertension, severe cardiomyopathy recently wearing a life vest, former smoker, splenectomy. [facility] complaints of increasing shortness of breath cough and congestion. She was feeling weak and fatigued. She apparently tested positive for influenza A. She was found to be in atrial fibrillation with a rapid ventricular response. She was found to have elevated troponins and was transferred here for yesterday for further treatment and care. Chest x-ray reveals cardiomegaly and mild pulmonary vascular congestion. EKG revealed atrial fibrillation with a controlled ventricular response. White count 6.8. Hemoglobin 13.5. Platelets 189. Sodium 138. Potassium 3.8. Bicarb 25. BUN 19. Creatinine 0.62. Glucose 133. Troponin 0.164, 0.106. proBNP 3100. She is seen today in consultation in the emergency department. She is currently sitting up on a stretcher. Awake and alert in no acute distress. She is maintaining O2 saturations in the 90s on 3 L/min per nasal cannula. She has a dry nonproductive cough. She has some hoarseness. Hemoptysis. She has been afebrile. Somewhat hypertensive. Progress note dated 05/20/2025. The patient is seen today in room 364. She was seen in consultation yesterday. The patient has a history of congestive heart failure, and influenza A. She also was having issues with atrial fibrillation and RVR. She is currently turned down to 2 L. Saturations are 98%. Her nurse was going to trial her on room air. Clinically, she is feeling much better. Current labs include a white count of 6.3, hemoglobin 13.8, hematocrit 44.1, and a normal platelet count. Sodium 138, potassium 3.5, chlorides 99, CO2 35, BUN 25, and creatinine 0.84. N-terminal proBNP was 3100. Objective - Vital Signs Vital signs: Vital Signs Temp 97.5 F L 10/12/24 11:45 Pulse 88 10/12/24 13:20 Resp 18 10/12/24 13:20 BP 119/76 10/12/24 11:45 Pulse Ox 94 L 10/12/24 13:08 FiO2 Intake & Output 10/11/24 10/12/24 10/12/24 18:59 06:59 18:59 Intake Total 237 440 Balance 237 440 Weight 115.212 kg 112.5 kg Intake: Oral 237 440 Other: Voiding Method External Catheter Bedside Commode Bedside Commode # Voids 1 1 1 - Exam No acute distress, oriented 3. HEENT examination is grossly unremarkable. Mucous membranes are moist. No oral lesions. Neck supple. Full range of motion. No adenopathy thyromegaly or neck vein distention. Cardiovascular examination reveals an irregular rhythm and rate. S1-S2 normal. No S3 or S4. No discernible murmur noted. Lungs reveal bibasilar crackles. No wheezes. No rhonchi. Breath sounds equal. Abdomen soft bowel sounds are heard. No masses or tenderness. Extremities revealed slight edema. No cyanosis or clubbing. Skin is without rash or lesion. Neurologic examination is brief but nonfocal. - Labs CBC & Chem 7: 10/12/24 05:22 10/12/24 05:22 Labs: Abnormal Lab Results - Last 24 Hours (Table) 10/12/24 10/12/24 Range/Units 05:22 05:22 MCV 101.4 H (80.0-100.0) fL Carbon Dioxide 35 H (22-30) mmol/L BUN 25 H (7-17) mg/dL Assessment and Plan Assessment: Acute hypoxemic respiratory failure secondary to an acute exacerbation of suspected systolic congestive heart failure with atrial fibrillation and rapid ventricular response. Troponin leak, secondary to above. Acute influenza A infection. History of atrial fibrillation. History of severe cardiomyopathy recently wearing a LifeVest. Hypertension. Former smoker. 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 Plan: Plan dated October 12, 2024. The patient is seen today in room 364. She has been weaned down to 2 L. Saturations are 98%. Her nurse is going to trial her on room air. The patient is clinically doing much better. She feels much improved. Labs, x-rays, and all medications are reviewed. We will continue to follow make recommendations. The patient continues on Tamiflu, and breathing treatments. She continues on prednisone. Prognosis is guarded. Time with Patient: Less than 30
--- NOTE | 2024-10-12 16:51 | CA ---
Transthoracic Echo Report Name: Valentina Dixon Age: 84 Gender: F : 1940 Exam Date: 10/12/2024 09:06 Exam Location: [place] [facility] Ht (in): 66 Wt (lb): 254 Ordering Physician: Eva Holguin Attending/Referring Phys: Jhoan Jacques PAC Cardiothoracic Surgeon Julianne Amezquita, CHELSEY Procedure CPT: Indications: chf Cardiac Hx: Technical Quality: Good Contrast 1: Total Dose (mL): Contrast 2: Total Dose (mL): MEASUREMENTS (Male / Female) Normal Values 2D ECHO LV Diastolic Diameter PLAX 6.5 cm 4.2 - 5.9 / 3.9 - 5.3 cm LV Systolic Diameter PLAX 5.0 cm IVS Diastolic Thickness 0.9 cm 0.6 - 1.0 / 0.6 - 0.9 cm LVPW Diastolic Thickness 0.9 cm 0.6 - 1.0 / 0.6 - 0.9 cm LV Relative Wall Thickness 0.3 RV Internal Dim ED PLAX 3.4 cm LVOT Diameter 1.7 cm Aortic Root Diameter 3.2 cm LA Systolic Diameter LX 5.4 cm 3.0 - 4.0 / 2.7 - 3.8 cm LV Diastolic Volume MOD 4C 116.2 cm??? LV Systolic Volume MOD 4C 65.9 cm??? LV Ejection Fraction MOD 4C 43.3 % LV Cardiac Index MOD 4C 1653.3 cm???/min???m??? LV Diastolic Length 4C 7.8 cm LV Systolic Length 4C 6.6 cm DOPPLER Mitral E Point Velocity 71.8 cm/s Mitral A Point Velocity 17.4 cm/s Mitral E to A Ratio 4.1 MV Deceleration Time 171.5 ms MV E' Velocity 5.4 cm/s Mitral E to MV E' Ratio 13.2 TR Peak Velocity 297.3 cm/s TR Peak Gradient 35.3 mmHg FINDINGS Left Ventricle Left ventricular ejection fraction is estimated at 40- 45 %. Severely increased left ventricular diastolic diameter. No obvious regional wall motion abnormalities. Left ventricular wall thickness normal. Right Ventricle Mild right ventricular dilatation. Mild pulmonary hypertension. Right Atrium Moderate right atrial dilatation. No right atrial thrombus or mass seen. Left Atrium Severely increased left atrial diameter. No left atrial thrombus or mass present. Mitral Valve Structurally normal mitral valve. No mitral stenosis. Mild mitral annular calcification. Moderate mitral regurgitation. Aortic Valve Trileaflet aortic valve. No aortic stenosis. No aortic regurgitation. Thickened aortic valve without stenosis. Tricuspid Valve Structurally normal tricuspid valve. Moderate tricuspid regurgitation. Pulmonic Valve Structurally normal pulmonic valve. Trace to mild pulmonic regurgitation. Pericardium No pericardial effusion. Aorta Normal size aortic root and proximal ascending aorta. CONCLUSIONS Left ventricular ejection fraction 40-45% Mild to moderate right ventricular dilation Severe biatrial enlargement Mild mitral annular calcification Moderate mitral regurgitation Moderate tricuspid regurgitation Previewed by: Dr. Ruperto Boyce DO (Electronically Signed) Final Date: 12 October 2024 16:50
[2024-10-12] MEDS ORDERED: OSELTAMIVIR 30 MG CAP PO SCH (21:00)
--- NOTE | 2024-10-12 22:06 | P.DS ---
Providers Date of admission: 10/10/24 19:05 Attending physician: Jessica Pineda Consults: 10/10/24 19:03 Consult Physician Routine Consulting Provider: Geoff Lynch Consult Reason/Comments: Acute Bronchitis Do you want consulting provider notified?: Yes, Notify in am 10/11/24 01:27 Consult Physician Stat Consulting Provider: Larry Ortiz Consult Reason/Comments: Elevated troponin, afib with RVR Do you want consulting provider notified?: Yes Primary care physician: Physician Nonstaff Hospital Course: Diagnoses: Acute CHF exacerbation, with reduced ejection fraction A-fib and RVR, present on admission Dilated cardiomyopathy Influenza A infection mild acute COPD exacerbation Obesity with BMI of 41 Hypertension Dyslipidemia Hospital course: This is a pleasant 84 years old female with past medical history of multiple medical problems including A-fib and RVR and she is on Eliquis at home, she follow-up with pot annealer as an outpatient Dr. Soares She has been having worsening shortness of breath for more than a week, she went to urgent care who prescribed her antibiotics ampicillin with no much benefit one day earlier she went to urgent care where they diagnosed her and started her on influenza treatment with Tamiflu. Also she was started on prednisone. Patient she has remote history of smoking more than 40 years ago. She is having some coughing with phlegm. She denies chest pain. Patient was admitted to the hospital and diagnosed for acute CHF exacerbation with elevated proBNP 3100 and chest x-ray showing cardiomegaly with mild pulmonary vascular congestion. On admission she was mildly hypoxic requiring 2 to 3 L of of oxygen via nasal cannula to keep oxygen saturation in high 90s also she was tachycardic with heart rate more than 100. She was admitted to the hospital and treated with diuretics with IV Lasix 40 mg twice daily. Also she is continued on Tamiflu for her diagnosis of influenza and prednisone 40 mg for her mild acute COPD exacerbation and viral infection. Her troponin were elevated, secondary to type II [place] secondary to oxygen supply/demand mismatch per Litigation Claim Representative. Upon discharge patient was continued on the current cardiac medication, today card iology team stopped her IV Lasix and switch her to oral diuretic Lasix 40 mg once daily. Patient states she has Eliquis at home Patient was evaluated by both pulmonary and cardiology service. Patient showed interval improvement on this morning patient she was feeling much better. She still denying chest pain. No other new complaint. Patient was cleared for discharge by both cardiology and pulmonary service In the evening patient has concerns about her being discharge. I talked to the patient over the phone. She denies any new symptoms and no new complaint. Actually patient oxygenation status improving and when checked her oxygen she does not qualify for home oxygen therapy. I talked to the patient she is currently taking pills only. she does not need iv medication, her labs looks n ormal . Her hypoxia and symptoms improved and I explained to her it is safer to be monitored in the outpatient setting than inpatient. Also explained for the patient if she develop any worsening symptoms like chest pain worsening dyspnea fever or any other symptoms to come to the emergency room will call 911. Patient agreed however his sister also showed concerns that they live about 2 hours from the hospital and that is why she wanted her to stay 1 more night. I explained for the sister that this problem of living away from the hospital is going to be always the case even if we discharge her tomorrow or the day after.sister agreed to dc pt considering this on the medical team The prognosis is guarded either way for the patient given her age and multiple medical problems.. And the answer is not for the patient to stay in the hospital unnecessarily if she can be managed as an outpatient. I think the benefits of discharging the patient is more than the risk of staying in the hospital. Risks including but not limited to opportunistic infection given the patient high risk for bacterial superinfection given her obesity, minimal mobility,influenza viral infection and she is being on steroids and other cardiac medication and cardiac disease all this puts her at risk of her infection I explained this to the patient and she verbalized understanding. As an alternative I discussed with the staff and we made her a close follow-up appointment with her PCP in 3 days JOY Meraz. Patient was found stable and can be discharged home in guarded prognosis however he needs follow-up as an outpatient. Patient was instructed to follow up with PCP in 3 days and patient agrees per bed side nurse Patient also was instructed to follow-up with her pot annealer in 1 week after discharge and she agrees Patient was instructed to follow-up with web merchant Dr. Tate in 2 weeks after discharge and she agrees Physical exam Gen: patient is a AAOx3, no distress CVS: S1-S2, RRR, no murmur Lungs: B/L CTA, no wheezing Abdomen: soft, no distention, no tenderness, positive bowel sounds Extremity: no leg edema or induration Time spent more than 35 minutes Patient Condition at Discharge: Stable Plan - Discharge Summary New Discharge Prescriptions: New Furosemide [Lasix] 40 mg PO DAILY #30 tab Metoprolol Tartrate [Lopressor] 100 mg PO BID #120 tab Albuterol Inhaler [Ventolin Hfa Inhaler] 1 - 2 puff INHALATION Q6H PRN 30 Days #1 each PRN Reason: Shortness Of Breath Or Wheezing Pantoprazole [Protonix] 40 mg PO DAILY #21 tab Ipratropium-Albuterol Nebulize [Duoneb 0.5 mg-3 mg/3 ml Soln] 3 ml INHALATION RT-Q2H PRN 30 Days #1 each PRN Reason: Shortness Of Breath Or Wheezing predniSONE 10 mg PO DIRECTED #40 tab Oseltamivir [Tamiflu] 75 mg PO Q12HR 3 Days #6 cap Benzonatate [Tessalon Perles] 100 mg PO TID PRN #21 cap PRN Reason: Cough Continue Spironolactone [Aldactone] 12.5 mg PO HS Sacubitril/Valsartan [Entresto 24 mg-26 mg Tablet] 1 tab PO BID Digoxin [Lanoxin] 62.5 mcg PO DAILY DULoxetine HCL [Cymbalta] 30 mg PO BID Empagliflozin [Jardiance] 10 mg PO DAILY Apixaban [Eliquis] 5 mg PO BID Simvastatin [Zocor] 20 mg PO HS Fenofibrate Nanocrystallized [Fenofibrate] 145 mg PO HS Discontinued Omeprazole [PriLOSEC] 40 mg PO DAILY Metoprolol Tartrate [Lopressor] 75 mg PO BID Torsemide [Demadex] 10 mg PO DAILY PRN PRN Reason: Edema Discharge Medication List Apixaban [Eliquis] 5 mg PO BID 10/10/24 [History] DULoxetine HCL [Cymbalta] 30 mg PO BID 10/10/24 [History] Digoxin [Lanoxin] 62.5 mcg PO DAILY 10/10/24 [History] Empagliflozin [Jardiance] 10 mg PO DAILY 10/10/24 [History] Fenofibrate Nanocrystallized [Fenofibrate] 145 mg PO HS 10/10/24 [History] Sacubitril/Valsartan [Entresto 24 mg-26 mg Tablet] 1 tab PO BID 10/10/24 [History] Simvastatin [Zocor] 20 mg PO HS 10/10/24 [History] Spironolactone [Aldactone] 12.5 mg PO HS 10/10/24 [History] Albuterol Inhaler [Ventolin Hfa Inhaler] 1 - 2 puff INHALATION Q6H PRN 30 Days #1 each 10/12/24 [Rx] Benzonatate [Tessalon Perles] 100 mg PO TID PRN #21 cap 10/12/24 [Rx] Furosemide [Lasix] 40 mg PO DAILY #30 tab 10/12/24 [Rx] Ipratropium-Albuterol Nebulize [Duoneb 0.5 mg-3 mg/3 ml Soln] 3 ml INHALATION RT-Q2H PRN 30 Days #1 each 10/12/24 [Rx] Metoprolol Tartrate [Lopressor] 100 mg PO BID #120 tab 10/12/24 [Rx] Oseltamivir [Tamiflu] 75 mg PO Q12HR 3 Days #6 cap 10/12/24 [Rx] Pantoprazole [Protonix] 40 mg PO DAILY #21 tab 10/12/24 [Rx] predniSONE 10 mg PO DIRECTED #40 tab 10/12/24 [Rx] Follow up Appointment(s)/Referral(s): Geoff Lynch MD [STAFF PHYSICIAN] - 11/02/24 1:00 pm Larry Ortiz MD [Medical Doctor] - 2 Weeks (Please follow up with your pot annealer in two weeks.) Nonstaff,Physician [Primary Care Provider] - 10/15/24 1:15 pm ([facility]) Patient Instructions/Handouts: Heart Failure (DC), Influenza (DC) Activity/Diet/Wound Care/Special Instructions: Home Care - [facility] - [phone] heart healthy diet ' Activity is restricted till you see your doctor Discharge Disposition: HOME SELF-CARE
[2024-10-13] MEDS ORDERED: FUROSEMIDE 40 MG TAB PO SCH (09:00)
== END 2024-10-12 16:41 | disposition home or self-care (01) | DRG 280 ==
LOC: EC 14:56 → 3SCARD 19:05
PROVIDERS: ADMIT Hospitalist; ATTEND Hospitalist
DX: I11.0 Hypertensive heart disease with heart failure (principal); I50.23 Acute on chronic systolic (congestive) heart failure; I21.A1 Myocardial infarction type 2; J10.01 Influenza due to other identified influenza virus with the same other identified influenza virus pneumonia; J96.21 Acute and chronic respiratory failure with hypoxia; R04.2 Hemoptysis; I48.92 Unspecified atrial flutter; J44.0 Chronic obstructive pulmonary disease with (acute) lower respiratory infection; J44.1 Chronic obstructive pulmonary disease with (acute) exacerbation; Z68.41 Body mass index [BMI] 40.0-44.9, adult; E78.5 Hyperlipidemia, unspecified; E66.01 Morbid (severe) obesity due to excess calories; I42.0 Dilated cardiomyopathy; I48.0 Paroxysmal atrial fibrillation; I08.1 Rheumatic disorders of both mitral and tricuspid valves; J20.9 Acute bronchitis, unspecified; Z79.01 Long term (current) use of anticoagulants; Z79.84 Long term (current) use of oral hypoglycemic drugs; Z79.899 Other long term (current) drug therapy; Z87.891 Personal history of nicotine dependence; Z90.81 Acquired absence of spleen; Z87.19 Personal history of other diseases of the digestive system; Z88.1 Allergy status to other antibiotic agents; Z88.2 Allergy status to sulfonamides; Z90.49 Acquired absence of other specified parts of digestive tract; Z95.818 Presence of other cardiac implants and grafts
CPT/HCPCS: 36415; 71045; 80048; 80053; 83880; 84484; 85025; 85610; 85730; 93306; 94640; 94760; 96374; 96375; 99285